=== PATIENT | female | born 1960 | race African-American/Black ===

== ENCOUNTER 2024-08-05 13:01 | Outpatient (CLI) | payer OTHER | END 2024-08-05 13:02 | disposition home or self-care (01) | LOC: CSHMAMMO 13:01 | PROVIDERS: ATTEND Nurse Practitioner Family | DX: Z12.31 Encounter for screening mammogram for malignant neoplasm of breast (principal); Z78.0 Asymptomatic menopausal state | CPT/HCPCS: 77063; 77067; 77080 ==